=== PATIENT | male | born 1980 | race Caucasian/White ===

== ENCOUNTER 2017-09-19 17:29 | Emergency (ER) | payer BC ==
[2017-09-19 17:40] VITALS: BP 124/89
--- NOTE | 2017-09-19 18:32 | EDM.PDOC ---
ED HPI GENERAL MEDICAL PROBLEM - General Chief Complaint: Respiratory Problem Stated Complaint: SOB Time Seen by Provider: 09/19/17 17:37 Source of Information: Reports: Patient History Limitations: Reports: No Limitations - History of Present Illness INITIAL COMMENTS - FREE TEXT/NARRATIVE: The patient states that he has had a dry cough since 09/16/2017, and chest tightness with wheezing since 09/17/2017. He notices that his symptoms are worse if he is lying down, better if he is upright. He has not had a fever, nausea, vomiting, constipation, diarrhea, chest pain, palpitations, or urinary symptoms. The patient states that he has been taking leftover Tessalon Perles, with no relief. The patient states that he has had similar symptoms in the past, but does not recall what the diagnosis was. The patient does not have a PCP. Chest Pain Score (Numeric/FACES): 1 - Related Data Allergies Allergy/AdvReac Type Severity Reaction Status Date / Time No Known Allergies Allergy Verified 09/19/17 17:36 Home Meds: Home Meds . [No Known Home Meds] 09/19/17 [History] Past Medical History - Past Surgical History HEENT Surgical History: Reports: Tonsillectomy (x 2) GI Surgical History: Reports: Appendectomy Musculoskeletal Surgical History: Reports: Arthroscopic Knee (Right x 3, left x 2) Dermatological Surgical History: Reports: Other (See Below) (Left wrist cyst excision x 5) Social & Family History - Tobacco Use Smoking Status *Q: Former Smoker Years of Tobacco use: 15 Packs/Tins Daily: 2 Second Hand Smoke Exposure: No - Alcohol Use Alcohol Use History: Yes Days Per Week of Alcohol Use: 1 Number of Drinks Per Day: 2 Total Drinks Per Week: 2 Alcohol Use Frequency: Socially - Recreational Drug Use Recreational Drug Use: No - Living Situation & Occupation Living situation: Reports: , with Spouse, with Family (2 kids) Occupation: Employed (Construction) ED ROS GENERAL - Review of Systems Review Of Systems: ROS reveals no pertinent complaints other than HPI. ED EXAM, GENERAL - Physical Exam Exam: See Below Exam Limited By: No Limitations General Appearance: Alert, WD/WN, No Apparent Distress Eye Exam: Bilateral Eye: Normal Inspection Ears: Normal External Exam, Hearing Grossly Normal Nose: Normal Inspection, No Blood Throat/Mouth: Normal Inspection, Normal Lips, Normal Voice, No Airway Compromise Head: Atraumatic, Normocephalic Neck: Normal Inspection, Full Range of Motion Respiratory/Chest: No Respiratory Distress, No Accessory Muscle Use, Wheezing ( Expiratory, more pronounced with the patient supine, less pronounced with the patient upright). No: Crackles, Rhonchi Cardiovascular: Normal Peripheral Pulses, Regular Rate, Rhythm, No Gallop, No JVD, No Murmur, No Rub Peripheral Pulses: 4+: Radial (L), Radial (R) GI/Abdominal: Normal Bowel Sounds, Soft, Non-Tender, No Organomegaly, No Distention, No Abnormal Bruit, No Mass (Male) Exam: Deferred Rectal (Males) Exam: Deferred Back Exam: Normal Inspection, Full Range of Motion, NT Extremities: Normal Inspection, Normal Range of Motion, No Pedal Edema, Normal Capillary Refill Neurological: Alert, Oriented, Normal Cognition, No Motor/Sensory Deficits Psychiatric: Normal Affect Skin Exam: Warm, Dry, Intact, Normal Color, No Rash Course - Vital Signs Last Recorded V/S: Last Vital Signs Temp 36.1 C 09/19/17 17:37 Pulse 88 09/19/17 17:37 Resp 18 09/19/17 17:37 BP 124/89 09/19/17 17:37 Pulse Ox 98 09/19/17 17:37 - Orders/Labs/Meds Orders: Active Orders 24 hr Category Date Time Status Chest 2V [CR] Stat Exams 09/19/17 18:11 Ordered - Re-Assessments/Exams Free Text/Narrative Re-Assessment/Exam: 09/19/17 18:25 Two-view chest radiograph appears to be grossly normal. Cardiac silhouette is within normal limits. No pulmonary vascular congestion. No pleural effusions. No focal infiltrate. No pneumothorax. Formal read per the Radiologist pending. 09/19/17 18:30 Chest x-ray results discussed with the patient. Clinically, he has acute viral bronchitis. I explained that, unfortunately, there are no medicines to treat bronchitis. Albuterol is only recommended to treat exacerbations of underlying lung disease, such as asthma or COPD, as a result of bronchitis, but not to treat bronchitis itself, and, in this case, the patient does not have underlying lung disease. Antitussive medications are not effective in the treatment of bronchitis. Departure - Departure Time of Disposition: 18:32 Disposition: Home, Self-Care 01 Condition: Good Clinical Impression: Acute bronchitis, viral - Discharge Information Referrals: PCP,None [Primary Care Provider] - Juliet Malloy [Physician] - Additional Instructions: You were seen in the emergency room for a dry cough and chest tightness with some wheezing. Workup in the ER included a chest x-ray, which was normal. Based on your history and physical examination, you are MOST LIKELY suffering from acute viral bronchitis. Unfortunately, there are no medicines to treat viral bronchitis - it will have to run its course, which typically takes 3 weeks. Also unfortunately, there are no medicines to treat the cough due to viral bronchitis, although you may be less symptomatic if you are upright. Follow-up with Dr. Malloy in the clinic, as needed. If any other problems, please do not hesitate to return to the ER. - My Orders Last 24 Hours: My Active Orders 09/19/17 18:11 Chest 2V [CR] Stat - Assessment/Plan Last 24 Hours: My Active Orders 09/19/17 18:11 Chest 2V [CR] Stat
--- NOTE | 2017-09-20 07:48 | CR ---
Chest: Two views of the chest were obtained. Comparison: Prior chest x-ray of 11/05/13. Heart size and mediastinum are normal. Lungs are clear. Bony structures are unremarkable. Impression: 1. Nothing acute is identified on two-view chest x-ray. Diagnostic code #1
== END 2017-09-19 18:45 | disposition home or self-care (01) ==
LOC: JD.ED 17:29
DX: J20.8 Acute bronchitis due to other specified organisms (principal); Z87.891 Personal history of nicotine dependence
CPT/HCPCS: 71046; 71046-26; 99283

== ENCOUNTER 2020-04-26 04:15 | Emergency (ER) | payer BC ==
[2020-04-26 05:23] VITALS: BP 123/91; PULSE 66
[2020-04-26] MEDS ORDERED: Lidocaine 1% with EPINEPHrine 1:100,000 20 ML MDV INJECT ONE (07:11)
--- NOTE | 2020-04-26 07:12 | EDM.PDOC ---
ED HPI GENERAL MEDICAL PROBLEM - General Chief Complaint: Skin Complaint Stated Complaint: POSS CYST ON BOTTOM Time Seen by Provider: 04/26/20 07:06 Source of Information: Reports: Patient History Limitations: Reports: No Limitations - History of Present Illness INITIAL COMMENTS - FREE TEXT/NARRATIVE: 40-year-old male presents the ED with a painful swollen lesion around his anus. States it started yesterday and is progressively intensified in degree of pain. It is constant and throbbing. Painful to sit and walk. He reports his bowel function has been normal with no constipation or diarrhea. He has not noticed any drainage or blood from the lesion. He has had problems with external hemorrhoids in the past. He does not feel systemically ill. No fever no chills no nausea or vomiting. Onset: Gradual Onset Date: 04/25/20 Duration: Hour(s):, Getting Worse Location: Reports: Other (Painful swollen lesion perianally) Quality: Reports: Ache, Throbbing Severity: Moderate Improves with: Reports: None Worsens with: Reports: Other Context: Denies: Activity (Walking and sitting.), Exercise, Lifting, Sick Contact, Trauma Associated Symptoms: Denies: Confusion, Chest Pain, Cough, cough w sputum, Fever/Chills, Headaches, Loss of Appetite, Malaise, Nausea/Vomiting, Rash, Seizure, Syncope Treatments KITCHEN HAND: Reports: Other (see below) (None.) Rectal Pain Score (Numeric/FACES): 3 - Related Data Allergies Allergy/AdvReac Type Severity Reaction Status Date / Time No Known Allergies Allergy Verified 04/26/20 05:22 Home Meds: Home Meds . [No Known Home Meds] 09/19/17 [History] Past Medical History - Past Health History Medical/Surgical History: Denies Medical/Surgical History - Past Surgical History HEENT Surgical History: Reports: Tonsillectomy (x 2) GI Surgical History: Reports: Appendectomy Musculoskeletal Surgical History: Reports: Arthroscopic Knee (Right x 3, left x 2) Dermatological Surgical History: Reports: Other (See Below) (Left wrist cyst excision x 5) Social & Family History - Living Situation & Occupation Living situation: Reports: , with Spouse, with Family (2 kids) Occupation: Employed (Construction) ED ROS GENERAL - Review of Systems Review Of Systems: See Below Constitutional: Denies: Fever, Chills, Malaise, Weakness, Fatigue, Decreased Appetite, Weight Loss HEENT: Reports: Glasses Respiratory: Reports: No Symptoms Cardiovascular: Reports: No Symptoms Endocrine: Reports: No Symptoms GI/Abdominal: Reports: No Symptoms : Reports: No Symptoms Musculoskeletal: Reports: No Symptoms Skin: Reports: Other (Painful swollen area perianally.) Psychiatric: Reports: No Symptoms Hematologic/Lymphatic: Reports: No Symptoms Immunologic: Reports: No Symptoms ED EXAM, SKIN/RASH Exam: See Below Exam Limited By: No Limitations General Appearance: Alert, WD/WN, No Apparent Distress, Other Eye Exam: Bilateral Eye: Normal Inspection, PERRL Throat/Mouth: Normal Inspection, Normal Lips, Normal Oropharynx Respiratory/Chest: No Respiratory Distress, Lungs Clear, Normal Breath Sounds, No Accessory Muscle Use, Chest Non-Tender Peripheral Pulses: 3+: Posterior Tibial (L), Posterior Tibial (R), Dorsalis Pedis (L), Dorsalis Pedis (R) GI/Abdominal: Normal Bowel Sounds, Soft, Non-Tender, No Organomegaly, No Mass, Pelvis Stable Rectal (Males) Exam: Other (Painful mass left side of the perianal area at 6:00 to 8 o'clock position if he was lying on his back. Peers to be a thrombosed hemorrhoid. No purulent drainage. Moderately tender to touch. No erythema) Back Exam: Normal Inspection, Full Range of Motion Extremities: Normal Inspection, Normal Range of Motion, Non-Tender Neurological: Alert, Oriented, CN II-XII Intact, Normal Cognition ED SKIN PROCEDURES - I&D Site: External thrombosed hemorrhoid Skin Prep: Chlorhexidine (Hibiciens) Local Anesthesia: Lidocaine: 1% with EPI Local Anesthetic Volume: 2cc Area Incised With: 15 Blade Drainage: Bloody, Large Amount, Other (Several clots removed from the thrombosed hemorrhoid.) Probed to Break Up Loculations: No Sterile Dressing: Adhesive Dressing, 4x4(s) Course - Vital Signs Last Recorded V/S: Last Vital Signs Temp 36.7 C 04/26/20 05:18 Pulse 66 04/26/20 05:18 Resp 16 04/26/20 05:18 BP 123/91 H 04/26/20 05:18 Pulse Ox 97 04/26/20 05:18 - Orders/Labs/Meds Meds: Medications Discontinued Medications Generic Name Dose Route Start Last Admin Trade Name Freq PRN Reason Stop Dose Admin Lidocaine/Epinephrine 20 ml 04/26/20 07:11 04/26/20 07:21 Xylocaine 1% With Epinephrine 1:100,000 INJECT 04/26/20 07:12 20 ml ONETIME ONE Administration John Rosas 2 pad 04/26/20 07:36 04/26/20 07:56 Tucks TOP 04/26/20 07:37 2 applic ASDIRECTED STA Administration - Radiology Interpretation Free Text/Narrative:: 40-year-old male presents to the ED with a painful swollen area along his anus. States it popped up over the last 24 hours. Has a history of recurrent external thrombosed hemorrhoids but this feels different. He has no systemic signs of illness. Examination reveals a swelling approximately 1.5 cm x 1 cm at the 6:00 to 8 o'clock position perianally if he was lying on his back. Appears to be a thrombosed hemorrhoid is there is a bluish discoloration in the middle of the lesion without erythema. Plan will be to anesthetize the area with 1% lidocaine with epinephrine and open up and drain it and remove the clot. - Re-Assessments/Exams Free Text/Narrative Re-Assessment/Exam: 04/26/20 07:40 thrombosed external hemorrhoid was anesthetized with 1% lidocaine with epinephrine. A 1.2 cm incision was made into the hemorrhoid which was about the size of a grape. Removed over a large clots from the area. Plan will be to have sitz bath 4 times daily for the next 2 days. Cover the area which seble patches and 4 x 4's until it heals. Departure - Departure Time of Disposition: 07:41 Disposition: Home, Self-Care 01 Condition: Fair Clinical Impression: Thrombosed external hemorrhoid, Encounter for incision and drainage procedure - Discharge Information *PRESCRIPTION DRUG MONITORING PROGRAM REVIEWED*: Not Applicable *COPY OF PRESCRIPTION DRUG MONITORING REPORT IN PATIENT SARAI: Not Applicable Instructions: Hemorrhoids, [id number] Referrals: PCP,None [Primary Care Provider] - Forms: ED Department Discharge Additional Instructions: Evaluation in the emergency room this morning in regards to a painful swelling that developed perianally over the last 24 hours. Exam reveals this to be a thrombosed external hemorrhoid almost the size of a grape. Decision made to incise and drain the hemorrhoid under local anesthetic which was performed. Remove several large clots from the hemorrhoid. 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 Then apply witch seble patches folded over top of the hemorrhoid and 4 x 4 dressings. After 2 days you should not require any further dressings to the area. Return to medical care if any further problems occur. Sepsis Event Note (ED) - Evaluation Sepsis Screening Result: No Definite Risk - Focused Exam Vital Signs: Vital Signs Temp Pulse Resp BP Pulse Ox 04/26/20 05:18 36.7 C 66 16 123/91 H 97
[2020-04-26] MEDS ORDERED: Witch Hazel Medicated Pads 40/Jar TOP STA (07:36)
== END 2020-04-26 07:50 | disposition home or self-care (01) ==
LOC: JD.ED 04:15
DX: K64.5 Perianal venous thrombosis (principal)
CPT/HCPCS: 46083; 99282; A9270; 46320

== ENCOUNTER 2024-04-20 18:10 | Emergency (ER) | payer BC ==
[2024-04-20] MEDS ORDERED: Sodium Chloride 0.9% 10 ML Syringe FLUSH PRN (18:44)
[2024-04-20 19:07] LABS: BASOPHILS PERCENT AUTO 0.4 % (0.0-1.0); EOSINOPHILS ABSOLUTE AUTO 0.2 K/mm3 (0.0-0.4); HEMATOCRIT 46.9 % (42.0-52.0); HEMOGLOBIN 16.3 gm/dl (14.0-18.0); IMMATURE GRAN ABSOLUTE AUTO 0.02 K/mm3 (0.00-0.05); IMMATURE GRAN PERCENT AUTO 0.3 % (0.0-0.4); LYMPHOCYTES ABSOLUTE AUTO 2.3 K/mm3 (1.0-4.8); LYMPHOCYTES PERCENT AUTO 30.6 % (24.0-44.0); MEAN CORPUSCULAR HEMOGLOBIN 31.5 pg (28.0-32.0); MEAN CORPUSCULAR HGB CONC 34.8 g/dl (32.0-36.0); MEAN CORPUSCULAR VOLUME 90.5 fl (83.0-99.0); MEAN PLATELET VOLUME 9.3 fl (9.4-12.4); MONOCYTES ABSOLUTE AUTO 0.6 K/mm3 (0.0-0.8); MONOCYTES PERCENT AUTO 8.1 % (0.0-8.0); NEUTROPHILS ABSOLUTE AUTO 4.4 K/mm3 (1.8-7.7); NEUTROPHILS PERCENT AUTO 58.6 % (41.0-71.0); PLATELET COUNT,PLT 292 K/mm3 (150-400); RED BLOOD CELL COUNT 5.18 M/mm3 (4.52-5.90); WHITE BLOOD CELL COUNT,WBC 7.42 K/mm3 (3.9-11.3)
[2024-04-20 19:39] LABS: A/G RATIO 1.3 (1-2); ANION GAP 14.8 (5-15); BILIRUBIN TOTAL 0.6 mg/dL (0.2-1.0); BUN/CREATININE RATIO 7.9 (14-18); CALCIUM 9.1 mg/dL (8.5-10.1); CREATININE 1.4 mg/dL (0.7-1.3); EST CRCL DRUG DOSING (CG) 70.22 mL/min; MAGNESIUM 2.2 mg/dL (1.8-2.4); POTASSIUM,K 3.8 mEq/L (3.5-5.1); PROTEIN TOTAL,TP 7.1 g/dl (6.4-8.2)
[2024-04-20 19:41] LABS: TSH 2.029 uIU/mL (0.358-3.74)
[2024-04-21 00:42] VITALS: BP 123/73; PULSE 77
== END 2024-04-20 20:20 | disposition home or self-care (01) ==
LOC: JD.ED 18:10
DX: R00.2 Palpitations (principal); Z90.49 Acquired absence of other specified parts of digestive tract
CPT/HCPCS: 36415; 71046; 71046-26; 80053; 83735; 84443; 84484; 85025; 85379; 93005; 93010; 93246; 99282; 99285